=== PATIENT | female | born 2000 | race Caucasian/White ===

== ENCOUNTER 2020-04-15 22:04 | Inpatient (IN) | payer BC, OTHER ==
[~2020-04-15] VITALS: Ht 157.5 cm; Wt 95.0 kg
[~2020-04-15 22:04] MED LIST: ACETAMINOPHEN 325 MG TAB As Ordered ONE; ACETAMINOPHEN 325 MG TAB ONE
[2020-04-16] MEDS ORDERED: MAALOX 30 ML SUSP *UDC PO PRN
[2020-04-16] MEDS ORDERED: MOM 30ML SUSPENSION UDC PO PRN
[2020-04-16] MEDS ORDERED: ACETAMINOPHEN TAB 650MG DOSE (2X325MG) PO PRN
[2020-04-16 00:18] VITALS: BP 120/80
[2020-04-16] MEDS: traZODone 50 MG TAB PO PRN ×2 (00:42→21:47)
[2020-04-16] MEDS: OLANZapine ORAL DISINTEGRATING TAB 5MG PO PRN (00:42)
[2020-04-16 06:09] VITALS: BP 127/71
[2020-04-16] MEDS ORDERED: ESCI10TA2 PO (09:23)
[2020-04-16] MEDS: hydrOXYzine 50 MG TAB PO PRN (12:21)
[2020-04-16 16:44] VITALS: BP 116/71
--- NOTE | 2020-04-16 19:29 | HPEPDOC ---
[facility] Medical History & Physical Date of Admission Apr 16, 2020 Date of Service: Apr 16, 2020 Attending Physician: KERI CLEMENS DO History and Physical CHIEF COMPLAINT: Anxiety and depression HISTORY OF PRESENT ILLNESS: 19 yo F, recently relocated from [place], with a hx of anxiety and depression, admitted for major depressive episode with suicidal ideation. PAST MEDICAL HISTORY: 1. Anxiety and depression 2. Intrauterine demis PAST SURGICAL HISTORY: 1. Dilation and Curettage (03/2019) SOCIAL HISTORY: Marital status: Resides in: [place], [place] Children: 1 Employment: Tobacco use: smoker 2 pack year hx ETOH: rare Illicit drug use: denies IV drug use: denies FAMILY HISTORY: HTN, DM2 ALLERGIES: latex. REVIEW OF SYSTEMS: CONSTITUTIONAL: feels well physically HEENT: none. CARDIOVASCULAR: none. RESPIRATORY: none. GASTROINTESTINAL: none. GENITOURINARY: none. SKIN: none. MUSCULOSKELETAL: none. NEUROLOGICAL: none. PSYCHIATRIC: low mood, SI. ENDOCRINE: none. HEMATOLOGIC/LYMPHATIC: none. HOME MEDICATIONS: Please see below. PHYSICAL EXAMINATION: VITAL SIGNS: stable GENERAL APPEARANCE: NAD, comfortable. HEENT: PERRLA. CARDIOVASCULAR: RRR, normal S1, S2. LUNGS: lungs CTAB. ABDOMEN: soft, non tender. MUSCULOSKELETAL: normal ROM, no joint deformity. EXTREMITIES: wnl. NEUROLOGICAL: no focal neuro deficits. PSYCHIATRIC: anxiety, low mood with SI. LABORATORY DATA: See below. ASSESSMENT: 19 yo F with a hx of IUFD (S/p D&C), anxiety and depression, admitted to [facility] inpatient unit for major depressive episode with suicidal ideation. Hospitalist service consulted for medical assessment. . PLAN: 1. Anxiety and depression: patient states presently on lexapro since 1 week. Prior zoloft. Psychiatry to manage. 2. Obesity: BMI 38.3. Dietican eval No other acute medical issues identified. Please call should need arise. Vital Signs Vital Signs Date Time Temp Pulse Resp B/P (MAP) Pulse Ox O2 Delivery O2 Flow Rate FiO2 04/16/20 16:44 98.0 69 16 116/71 (86) 04/16/20 14:41 Room Air Home Medications Scheduled Escitalopram Oxalate (Escitalopram Oxalate) 10 Mg Tablet, 10 MG PO DAILY for . Allergies Coded Allergies: latex (Verified Allergy, Intermediate, BLISTER, 8/18/20) A-FIB/CHADSVASC A-FIB History Current/History of A-Fib/PAF?: No Current PO Anticoag Therapy: No REHANA VARNER MD Apr 16, 2020 19:29
[2020-04-16] MEDS: NICOTINE 21MG/24HR 1 EA TRANSDERMAL TD PRN (20:46)
[2020-04-16] MEDS ORDERED: SERTRALINE HCL 25 MG TABLET PO SCH (21:00)
[2020-04-17 06:51] VITALS: BP 115/63
[2020-04-17] MEDS: hydrOXYzine 50 MG TAB PO PRN ×3 (07:54→22:14)
[2020-04-17] MEDS: NICOTINE 21MG/24HR 1 EA TRANSDERMAL TD PRN (09:24)
--- NOTE | 2020-04-17 13:13 | MHIPNPDOC ---
[facility] Progress Note Progress Note DATE OF SERVICE: 04/17/20 HISTORY: Patient is a 19 year old White Female who presented to [facility] with [facility] with depression and Suicidal ideation to overdose on "anything". VITAL SIGNS: See below. NEW TEST RESULTS: CURRENT MEDICATIONS: See below. MENTAL STATUS EXAMINATION: Patient is a [19]-year old female, who is reporting continued depression and fleeting suicidal ideation. Speech: Is soft, low with hesitancy. Language skills are . Thought processes including: reality based, linear and goal oriented. Thought content: Negative for carole, psychosis, delusions, auditory and visual hallucinations. Abstract reasoning, and computation: fair . Description of associations: Negative. Description of abnormal or psychotic thoughts: Negative Judgment: fair. Insight: fair. Orientation: alert and oriented to person place and time. Recent and remote memory: intact. Attention span and concentration: good. Language: Fund of knowledge: congruent with her education. Mood: depressed. Affect: flat DIAGNOSES: 1. Major Depressive Disorder, Recurrent, Moderate Post exacerbation 2. Anxiety Disorder 3. ASSESSMENT: Patient is not stable for discharge, she continues to report fle eting suicidal ideation, no planning or intent MANAGEMENT PLAN: Increase Zoloft 50 mg. Patient to start Buspar 10 mg twice casey ly TIME SPENT: 20 minutes. Vital Signs Vital Signs Date Time Temp Pulse Resp B/P (MAP) Pulse Ox O2 Delivery O2 Flow Rate FiO2 04/17/20 09:00 Room Air 04/17/20 06:51 97.3 70 16 115/63 (80) Current Medications Current Medications Medications (Trade) Dose Ordered Sig/Brandon Route PRN Reason Start Time Stop Time Status Last Admin Dose Admin Acetaminophen (Tylenol Tab) 650 mg Q6HP PRN PO HEADACHE or DISCOMFORT 04/16/20 00:00 Al Hydrox/Mg Hydrox/Simethicone (Mylanta) 30 ml Q4HP PRN PO HEARTBURN/INDIGESTION 04/16/20 00:00 Buspirone HCl (Buspar) 5 mg BID PO 04/17/20 09:00 Home Med (Med Rec Complete!) ASDIRECTED XX 04/16/20 09:30 04/16/20 09:27 DC Hydroxyzine HCl (Atarax) 50 mg Q6HP PRN PO ANXIETY 04/16/20 12:00 04/17/20 07:54 Magnesium Hydroxide (Milk Of Magnesia) 30 ml DAILYPRN PRN PO CONSTIPATION 04/16/20 00:00 Nicotine (Nicoderm Cq 21mg) 1 patch DAILY PRN TD Nicotine withdrawal 04/16/20 00:00 04/17/20 09:24 Olanzapine (ZyPREXA ZYDIS) 5 mg Q6HP PRN PO ANXIETY/AGITATION 04/16/20 00:00 04/16/20 00:42 Sertraline HCl (Zoloft) 25 mg QHS PO 04/16/20 21:00 04/17/20 12:53 DC 04/16/20 20:46 Sertraline HCl (Zoloft) 50 mg QHS PO 04/17/20 21:00 Trazodone HCl (Desyrel) 50 mg QHSP PRN PO INSOMNIA 04/16/20 00:00 04/16/20 21:47 Allergies Coded Allergies: latex (Verified Allergy, Intermediate, BLISTER, 04/15/20) ANYA TOM NP Apr 17, 2020 13:12
[2020-04-17] MEDS: busPIRone 5 MG TAB PO SCH ×2 (14:50→20:56)
[2020-04-17 18:00] VITALS: BP 128/82
[2020-04-17] MEDS: traZODone 50 MG TAB PO PRN (20:56)
[2020-04-17] MEDS ORDERED: SERTRALINE HCL 50 MG TAB PO SCH (21:00)
[2020-04-18 06:45] VITALS: BP 124/70
[2020-04-18] MEDS: NICOTINE 21MG/24HR 1 EA TRANSDERMAL TD PRN (08:24)
[2020-04-18] MEDS: hydrOXYzine 50 MG TAB PO PRN (08:24)
[2020-04-18] MEDS: busPIRone 5 MG TAB PO SCH (08:24)
[2020-04-18] MEDS ORDERED: BUSP5TA PO (09:47)
[2020-04-18] MEDS ORDERED: HYDR50TA70 PO (09:47)
[2020-04-18] MEDS ORDERED: NICO21PAT TD (09:47)
[2020-04-18] MEDS ORDERED: SERT50TA29 PO (09:47)
--- NOTE | 2020-04-18 10:07 | MHDSPDOC ---
[facility] Discharge Summary Discharge Summary DATE OF ADMISSION: Apr 15, 2020 at 22:04 DATE OF DISCHARGE: April 18, 2020 1329 DISCHARGE DIAGNOSES: 1. Major Depressive Disorder, Recurrent, Moderate. This depression was exacerbated by post 2. Anxiety Disorder REASON FOR ADMISSION: Patient represented to [facility] with Sander Quiros with reports of increased depression and anxiety with suicidal thoughts to overdose. CONSULTANTS INVOLVED: See Hospitalist H & P report on 04/16/20 TREATMENT AND PROGRESS ON THE UNIT : 1) Patient was afforded Individual and Group Psychotherapy. 2) Psychopharmacologic Management 3) Family was contacted for purposes of information dispersement which was conducted by the neighborhood planner for purpose of education and discharge planning HOSPITAL COURSE: Patient was admitted on a 9.39 legal status to Inpatient Mental Health and she stated that she had been trialed on Lexapro 10 mg but was having varying moods that were upswing and lows. This was discontinued. She was started on Zoloft 25 mg with no reports of side effects and this has been increased to 50 mg at bedtime. She stated that she continued to have anxiety through most of the day and given Buspar 5 mg twice daily. She has not been able to determine its efficacy but reported both yesterday and today that she was improving. Reports improved sleep. Improved mood and affect. Reports that group therapy helped her to process how to communicate with her spouse. States that she often does not communicate her feelings and this has been one of her stressors. She is future oriented and stated that she feels ready and stable for discharge. She is planning to take her children to the park and states that first thing she wants to see is their smiles. DISCHARGE ASSESSMENT: Patient is psychiatrically stable MENTAL STATUS EXAMINATION ON DISCHARGE: Patient is a 19-year old female, who is reporting a decrease in depressive symptoms and anxiety. Speech is fluid, normal rate tone and volume. This was an improvement as she often was very hesitant in her responses Language skills are Good. Thought processes including: Reality Base, Goal-Oriented Congruent and Linaar. Thought content: She is not observed with negative thought content of carole, psychosis, delusions, paranoia or auditory or visual hallucinations Abstract reasoning, and computation: Good. Description of associations: Negative. Description of abnormal or psychotic thoughts: Negative. Judgment: Good Insight: Good Orientation to Alert and oriented Recent and remote memory: Good Attention span and concentration: Good Language: Good Fund of knowledge: Is congruent with her education Mood: Euthymic Affect: Euthymic MEDICATIONS ON DISCHARGE: Zoloft 50 mg at bedtime Buspar 5 mg twice daily Hydroxyzine 50 mg twice daily PRN for anxiety Nicotine Patch 21 mg. One transdermal patch daily. PLAN/FOLLOWUP ARRANGEMENTS: Patient has an appointment with [facility] The amount of time spent in the coordination of care for this patient was approximately 30 minutes. Vital Signs/I&Os Vital Signs Date Time Temp Pulse Resp B/P (MAP) Pulse Ox O2 Delivery O2 Flow Rate FiO2 04/18/20 06:45 98.0 88 16 124/70 (88) 98 Room Air Medications Scheduled Buspirone HCl (Buspirone HCl) 5 Mg Tablet, 5 MG PO BID for Anxiety, #14 Sertraline HCl (Sertraline HCl) 50 Mg Tablet, 50 MG PO QHS for depression, #7 Scheduled PRN Hydroxyzine HCl (Hydroxyzine HCl) 50 Mg Tablet, 50 MG PO Twice Daily PRN for ANXIETY, #14 Nicotine (Nicotine Patch) 21 Mg Patch.td24, 1 PATCH TD DAILY PRN for Nicotine withdrawal, #7 Allergies Coded Allergies: latex (Verified Allergy, Intermediate, BLISTER, 04/15/20) ANYA TOM NP Apr 18, 2020 10:07
[2020-04-18] MEDS: OLANZapine ORAL DISINTEGRATING TAB 5MG PO PRN (11:25)
[2020-04-19 20:04] LABS: ACETAMINOPHEN LEVEL < 2.0 UG/ML (10.0-30.0); ALBUMIN 4.3 GM/DL (3.2-5.2); ALT/SGPT 53 U/L (12-78); AMPHETAMINES LEVEL URINE NEGATIVE (NEGATIVE); BARBITURATES URINE NEGATIVE (NEGATIVE); BENZODIAZEPINES URINE NEGATIVE (NEGATIVE); BILIRUBIN,DIRECT 0.1 MG/DL (0.0-0.2); BILIRUBIN,TOTAL 0.3 MG/DL (0.2-1.0); BLOOD UREA NITROGEN 10 MG/DL (7-18); CALCIUM LEVEL 9.3 MG/DL (8.5-10.1); CANNABINOIDS URINE NEGATIVE (NEGATIVE); CARBON DIOXIDE LEVEL 25 MEQ/L (21-32); CHLORIDE LEVEL 109 MEQ/L (98-107); COCAINE METABOLITE URINE NEGATIVE (NEGATIVE); CREATININE FOR GFR 0.66 MG/DL (0.55-1.30); ETHYL ALCOHOL (ETHANOL) < 0.003 % (0.000-0.010); GLUCOSE, FASTING 104 MG/DL (70-100); METHADONE URINE NEGATIVE (NEGATIVE); OPIATES URINE NEGATIVE (NEGATIVE); PHENCYCLIDINE URINE NEGATIVE (NEGATIVE); POTASSIUM SERUM 4.1 MEQ/L (3.5-5.1); SALICYLATE LEVEL < 1.7 MG/DL (5.0-30.0); SODIUM LEVEL 140 MEQ/L (136-145); TOTAL PROTEIN 7.8 GM/DL (6.4-8.2)
[2020-04-19 20:19] LABS: HCG, SERUM QUALITATIVE NEGATIVE (NEGATIVE)
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
[2020-05-26 08:24] LABS: HEMATOCRIT 42.9 % (36.0-47.0); HEMOGLOBIN 14.1 g/dl (12.0-15.5); MEAN CORPUSCULAR HGB CONC 32.9 g/dl (32.0-36.5); MEAN CORPUSCULAR VOLUME 88.1 fl (80.0-96.0); PLATELET COUNT, AUTOMATED 296 10^3/uL (150-450); RED BLOOD COUNT 4.87 10^6/uL (4.00-5.40); WHITE BLOOD COUNT 8.5 10^3/uL (4.0-10.0)
== END 2020-04-18 12:39 | disposition home or self-care (01) | DRG 885 ==
LOC: M PSY 22:04
PROVIDERS: ADMIT Psychiatry & Neurology Psychiatry; ATTEND Psychiatry & Neurology Psychiatry
DX: F33.2 Major depressive disorder, recurrent severe without psychotic features (principal); F41.9 Anxiety disorder, unspecified; F17.200 Nicotine dependence, unspecified, uncomplicated; E66.9 Obesity, unspecified; Z68.38 Body mass index [BMI] 38.0-38.9, adult

== ENCOUNTER 2020-05-30 12:25 | Inpatient (IN) | payer BC, OTHER ==
[~2020-05-30] VITALS: Ht 157.5 cm; Wt 97.3 kg
[~2020-05-30 12:25] MED LIST changes: -ACETAMINOPHEN 325 MG TAB As Ordered ONE; -ACETAMINOPHEN 325 MG TAB ONE; +BUSP5TA PO; +ESCI10TA2 PO; +HYDR50TA70 PO; +NICO21PAT TD; +SERT50TA29 PO
[2020-05-30 13:04] LABS: HEMATOCRIT 38.4 % (36.0-47.0); HEMOGLOBIN 12.5 g/dl (12.0-15.5); MEAN CORPUSCULAR HEMOGLOBIN 29.5 pg (27.0-33.0); MEAN CORPUSCULAR HGB CONC 32.6 g/dl (32.0-36.5); MEAN CORPUSCULAR VOLUME 90.6 fl (80.0-96.0); PLATELET COUNT, AUTOMATED 243 10^3/uL (150-450); RED BLOOD COUNT 4.24 10^6/uL (4.00-5.40); WHITE BLOOD COUNT 12.2 10^3/uL (4.0-10.0)
[2020-05-30] MEDS ORDERED: D 50CAP2 PO (13:15)
[2020-05-30 13:19] LABS: AMPHETAMINES LEVEL URINE NEGATIVE (NEGATIVE); BARBITURATES URINE NEGATIVE (NEGATIVE); BENZODIAZEPINES URINE NEGATIVE (NEGATIVE); CANNABINOIDS URINE NEGATIVE (NEGATIVE); COCAINE METABOLITE URINE NEGATIVE (NEGATIVE); METHADONE URINE NEGATIVE (NEGATIVE); OPIATES URINE NEGATIVE (NEGATIVE); PHENCYCLIDINE URINE NEGATIVE (NEGATIVE)
[2020-05-30] MEDS ORDERED: NICOTINE 21MG/24HR 1 EA TRANSDERMAL TD ONE (13:30)
[2020-05-30 13:33] LABS: HCG, SERUM QUALITATIVE NEGATIVE (NEGATIVE)
[2020-05-30 14:01] LABS: ACETAMINOPHEN LEVEL < 2.0 UG/ML (10.0-30.0); ALBUMIN 3.7 GM/DL (3.2-5.2); ALT/SGPT 30 U/L (12-78); BILIRUBIN,DIRECT < 0.1 MG/DL (0.0-0.2); BILIRUBIN,TOTAL 0.2 MG/DL (0.2-1.0); BLOOD UREA NITROGEN 13 MG/DL (7-18); CALCIUM LEVEL 8.9 MG/DL (8.5-10.1); CARBON DIOXIDE LEVEL 27 MEQ/L (21-32); CHLORIDE LEVEL 110 MEQ/L (98-107); CREATININE FOR GFR 0.56 MG/DL (0.55-1.30); ETHYL ALCOHOL (ETHANOL) < 0.003 % (0.000-0.010); GLUCOSE, FASTING 82 MG/DL (70-100); POTASSIUM SERUM 4.3 MEQ/L (3.5-5.1); SALICYLATE LEVEL 3.3 MG/DL (5.0-30.0); SODIUM LEVEL 142 MEQ/L (136-145); TOTAL PROTEIN 6.6 GM/DL (6.4-8.2)
[2020-05-30] MEDS ORDERED: RISP0.5T3 PO (14:51)
[2020-05-30] MEDS ORDERED: SERT50TA29 PO (15:22)
[2020-05-30] MEDS ORDERED: HYDR50TA70 PO (15:23)
[2020-05-30] MEDS ORDERED: MAALOX 30 ML SUSP *UDC PO PRN (16:15)
[2020-05-30] MEDS ORDERED: MOM 30ML SUSPENSION UDC PO PRN (16:15)
[2020-05-30] MEDS ORDERED: ACETAMINOPHEN TAB 650MG DOSE (2X325MG) PO PRN (16:15)
[2020-05-30] MEDS: hydrOXYzine 50 MG TAB PO PRN (20:14)
[2020-05-30] MEDS: SERTRALINE 100 MG TAB PO SCH (20:14)
[2020-05-30] MEDS: risperiDONE 0.5 MG TAB PO SCH (20:14)
[2020-05-30] MEDS: traZODone 50 MG TAB PO PRN (20:53)
[2020-05-30] MEDS ORDERED: OLANZapine ORAL DISINTEGRATING TAB 5MG PO ONE (21:15)
[2020-05-31 06:16] VITALS: BP 118/56
[2020-05-31] MEDS ORDERED: INFLUENZA QUADRIVALENT PF VACCINE 0.5ML SYRINGE IM ONE (09:00)
[2020-05-31] MEDS: hydrOXYzine 50 MG TAB PO PRN ×2 (13:58→20:29)
[2020-05-31] MEDS ORDERED: MIRALAX *UNIT DOSE* 17GM PACKET PO PRN (16:00)
[2020-05-31 16:14] VITALS: BP 118/70
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
[2020-05-31] MEDS: LIDOCAINE 5% (LIDODERM) PATCH TD SCH (16:28)
[2020-05-31] MEDS: DOCUSATE SODIUM 100 MG CAP PO SCH (16:28)
[2020-05-31] MEDS: NICOTINE 21MG/24HR 1 EA TRANSDERMAL TD SCH (16:28)
[2020-05-31] MEDS: **NOTE PATIENT COMMENT** MISC XX SCH (20:28)
[2020-05-31] MEDS: SERTRALINE 100 MG TAB PO SCH (20:29)
[2020-05-31] MEDS: risperiDONE 0.5 MG TAB PO SCH (20:30)
[2020-05-31] MEDS: traZODone 50 MG TAB PO PRN (21:49)
[2020-06-01 06:25] VITALS: BP 126/59
[2020-06-01] MEDS: DOCUSATE SODIUM 100 MG CAP PO SCH (08:48)
[2020-06-01] MEDS: NICOTINE 21MG/24HR 1 EA TRANSDERMAL TD SCH (08:48)
[2020-06-01] MEDS: LIDOCAINE 5% (LIDODERM) PATCH TD SCH (08:49)
--- NOTE | 2020-06-01 10:26 | MHHPEPDOC ---
[facility] History & Physical History and Physical Admit time:May 30, 2020 at 16:13 Subjective HPI: Turner presents today for concerns regarding her PTSD episodes. Her period and 1-year anniversary is bringing back memories and emotions. She does not want to kill herself. She wants to get better, so she can go back to her kids. She hears mostly female voices 24/7. She sees a plain black 3D male figure a lot. She has no history of staying up all night for weeks at a time. MEDICATIONS: She is currently taking Risperidone and Zoloft. MEDICAL HISTORY: She had a miscarriage and almost . FAMILY HISTORY: Her uncle has schizophrenia. SOCIAL HISTORY - LIVING SITUATION: Her living situation is stressful. She lives with her and her two kids. She is having financial issues. SOCIAL HISTORY - SMOKING: She smokes a pack of cigarettes a day. She wants to get a medical marijuana card, as it helped with her anxiety in the past. Objective Appearance: Fair Hygiene. Behavior: Poor eye contact. Affect: Constricted. Dystemic. Speech: Normal volume. Normal rate. Spontaneous and Fluid. Cognition: Associations are intact. Thought Content: Reports no suicidal thoughts at this time. Denies any auditory, visual hallucinations. Does not appear to be responding to internal stimuli. Judgement: Poor. Insight: Poor. 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 She appears to have transient stress induced psychosis and paranoia. However, it's quite unclear if this ultimately is related to the patient's presenting problem. She's not describing any direct stressors or other issues that had brought her in. Her suicidal ideations are vague at this time and could be the result of very poor coping skills. Length of stay is one two three days, will continue on involuntary with extension tomorrow or conversion to voluntary depending on how she does. Continue Risperidone and Zoloft at current dose. Vital Signs Vital Signs Date Time Temp Pulse Resp B/P (MAP) Pulse Ox O2 Delivery O2 Flow Rate FiO2 06/01/20 06:25 97.3 102 12 126/59 (81) Room Air 05/30/20 16:52 99 Medications Scheduled Cholecalciferol (Vitamin D3) (Vitamin D3) 125 Mcg Capsule, 125 MCG PO QHS, (Reported) Risperidone (Risperidone) 0.5 Mg Tablet, 1.5 MG PO QHS, (Reported) Sertraline HCl (Sertraline HCl) 50 Mg Tablet, 100 MG PO QHS, (Reported) Scheduled PRN Hydroxyzine HCl (Hydroxyzine HCl) 50 Mg Tablet, 50 MG PO BID PRN for ANXIETY, (Reported) Allergies Coded Allergies: latex (Verified Allergy, Intermediate, BLISTER, 04/15/20) escitalopram (Verified Adverse Reaction, Severe, SIs, 05/30/20) KERI CLEMENS DO Jun 01, 2020 10:26
[2020-06-01 16:15] VITALS: BP 140/89
[2020-06-01] MEDS: **NOTE PATIENT COMMENT** MISC XX SCH (20:44)
[2020-06-01] MEDS: SERTRALINE HCL 50 MG TAB PO SCH (20:45)
[2020-06-01] MEDS: traZODone 50 MG TAB PO PRN (20:46)
[2020-06-01] MEDS: risperiDONE 0.5 MG TAB PO SCH (20:46)
[2020-06-01 22:13] LABS: APPEARANCE, URINE CLEAR (CLEAR); BACTERIA, URINE AUTO NEGATIVE (NEGATIVE); BILIRUBIN, URINE AUTO NEGATIVE (NEGATIVE); BLOOD, URINE BLOOD 3+ (NEGATIVE); COLOR, URINE YELLOW (YELLOW); GLUCOSE, URINE (UA) AUTO NEGATIVE (NEGATIVE); KETONE, URINE AUTO NEGATIVE (NEGATIVE); LEUKOCYTE ESTERASE, URINE AUTO NEGATIVE (NEGATIVE); MUCUS, URINE SMALL (NEGATIVE); NITRITE, URINE AUTO NEGATIVE (NEGATIVE); PROTEIN, URINE AUTO NEGATIVE (NEGATIVE); RBC, URINE AUTO 2 /HPF (0-3); SPECIFIC GRAVITY URINE AUTO 1.013 (1.002-1.035); SQUAMOUS EPITHELIAL CELL UR AU 0 /HPF (0-6); UROBILINOGEN, URINE AUTO 0.2 mg/dL (0.0-2.0); WBC, URINE AUTO 1 /HPF (0-3)
[2020-06-02 06:32] VITALS: BP 120/59
[2020-06-02] MEDS: LIDOCAINE 5% (LIDODERM) PATCH TD SCH (09:26)
[2020-06-02] MEDS: DOCUSATE SODIUM 100 MG CAP PO SCH (09:26)
[2020-06-02] MEDS: NICOTINE 21MG/24HR 1 EA TRANSDERMAL TD SCH (09:26)
--- NOTE | 2020-06-02 11:19 | MHIPNPDOC ---
[facility] Progress Note Progress Note DATE OF SERVICE: 06/01/20 Subjective HPI: Turner presents today for a follow up. She reports a recent breakdown because of scary/worried thoughts racing through her mind, such as her cheating on her, her not waking up and her kids crying, or her doesnt want to be with her. Objective Appearance: Poor eye contact. Fair hygiene. Affect: Appropriate to context. Full range. Cognition: Alert, Attentive, and Oriented to person, place, time. Thought Form: Linear and goal directed. Thought Content: No evidence of suicidal ideation. No evidence of aggressive or homicidal ideation. No thoughts of self harm. No evidence of delusions. Judgement: Poor to fair. Intact as evidenced by decision making in the recent past. Insight: Poor to fair. Assessment F33.8 Other recurrent depressive disorders Plan Continue taking 150 mg Zoloft daily. Resume Risperidone as prescribed. Even though suicidal ideation is gone, still observe/examine her thoughts, which are quite concerning. Vital Signs Vital Signs Date Time Temp Pulse Resp B/P (MAP) Pulse Ox O2 Delivery O2 Flow Rate FiO2 06/02/20 06:32 96.8 77 16 120/59 (79) 100 Room Air Laboratory Data 24H Labs Laboratory Tests 2 06/01/20 22:00: Urine Color YELLOW, Urine Appearance CLEAR, Urine pH 5.0, Urine Specific [place] 1.013, Urine Protein NEGATIVE, Urine Glucose (Auto)(UA) NEGATIVE, Urine Ketones (Auto) NEGATIVE, Urine Blood 3+H, Urine Nitrite NEGATIVE, Urine Bilirubin NEGATIVE, Urine Urobilinogen 0.2, Urine Leukocyte Esterase (Auto) NEGATIVE, Urine WBC (Auto) 1, Urine RBC (Auto) 2, Urine Hyaline Casts (Auto) 0, Urine Bacteria (Auto) NEGATIVE, Urine Squamous Epithelial Cells 0, Urine Mucus (Auto) SMALL, Urine Sperm (Auto) Current Medications Current Medications Medications (Trade) Dose Ordered Sig/Brandon Route PRN Reason Start Time Stop Time Status Last Admin Dose Admin Acetaminophen (Tylenol Tab) 650 mg Q6HP PRN PO HEADACHE or DISCOMFORT 05/30/20 16:15 Al Hydrox/Mg Hydrox/Simethicone (Mylanta) 30 ml Q4HP PRN PO HEARTBURN/INDIGESTION 05/30/20 16:15 Docusate Sodium (Colace) 100 mg DAILY PO 05/31/20 09:00 06/02/20 09:26 Home Med (Med Rec Complete!) ASDIRECTED XX 05/30/20 15:30 05/30/20 15:26 DC Hydroxyzine HCl (Atarax) 50 mg BID PRN PO ANXIETY 05/30/20 16:30 05/31/20 20:29 Lidocaine (Lidoderm Patch) 1 patch DAILY TD 05/31/20 09:00 06/02/20 09:26 Magnesium Hydroxide (Milk Of Magnesia) 30 ml DAILYPRN PRN PO CONSTIPATION 05/30/20 16:15 Nicotine (Nicoderm Cq 21mg) 1 patch DAILY TD 05/31/20 09:00 06/02/20 09:26 Non-Formulary Medication ( See Comment Field Below ) REMOVE LIDODERM PATCH DAILY@21 XX 05/31/20 21:00 06/01/20 20:44 Polyethylene Glycol (Miralax) 1 pkt DAILYPRN PRN PO CONSTIPATION 05/31/20 16:00 Risperidone (RisperDAL) 1.5 mg QHS PO 05/30/20 21:00 06/01/20 20:46 Sertraline HCl (Zoloft) 100 mg QHS PO 05/30/20 21:00 06/01/20 16:13 DC 05/31/20 20:29 Sertraline HCl (Zoloft) 150 mg QHS PO 06/01/20 21:00 06/01/20 20:45 Trazodone HCl (Desyrel) 50 mg QHSP PRN PO INSOMNIA 05/30/20 16:15 06/01/20 20:46 Allergies Coded Allergies: latex (Verified Allergy, Intermediate, BLISTER, 04/15/20) escitalopram (Verified Adverse Reaction, Severe, SIs, 05/30/20) KERI CLEMENS DO Jun 02, 2020 11:19
[2020-06-02] MEDS: hydrOXYzine 50 MG TAB PO PRN (15:44)
[2020-06-02 17:46] VITALS: BP 128/88
[2020-06-02] MEDS: traZODone 50 MG TAB PO PRN (20:38)
[2020-06-02] MEDS: SERTRALINE HCL 50 MG TAB PO SCH (20:39)
[2020-06-02] MEDS: risperiDONE 0.5 MG TAB PO SCH (20:39)
[2020-06-02] MEDS: **NOTE PATIENT COMMENT** MISC XX SCH (21:00)
[2020-06-03 06:13] VITALS: BP 92/51
[2020-06-03] MEDS: hydrOXYzine 50 MG TAB PO PRN ×2 (08:44→20:38)
[2020-06-03] MEDS: LIDOCAINE 5% (LIDODERM) PATCH TD SCH (08:44)
[2020-06-03] MEDS: DOCUSATE SODIUM 100 MG CAP PO SCH (08:44)
[2020-06-03] MEDS: NICOTINE 21MG/24HR 1 EA TRANSDERMAL TD SCH (08:44)
--- NOTE | 2020-06-03 10:44 | MHIPNPDOC ---
[facility] Progress Note Progress Note DATE OF SERVICE: 06/03/20 Subjective HPI: Turner presents today for concerns regarding her depression. Patient is doing better with her depression and thoughts of suicide. She had symptoms of anxiety yesterday. Patient has a weekly appointment set up with her therapist. MEDICATIONS: Patient would like a different medication for her depression as it gets worse at night. Talk to primary care or CLINICAL PROGRAM COORDINATOR about Nexplanon. MEDICAL HISTORY: Patient has had a miscarriage and is suffering from flashbacks to that time. SOCIAL HISTORY - LIVING SITUATION: Patients birthday is on Tuesday and wants to spend it with her children. Objective Appearance: Well nourished. Appears to be stated age. Well groomed. Behavior: Engaged. Cooperative with good eye contact. Pleasant. Affect: Appropriate to context. Full range. Mood: Euthymic. Appropriately reactive. Generally good. Speech: Normal volume. Normal rate. Spontaneous and Fluid. Motor: No gross motor abnormalities. Cognition: Alert, Attentive, and Oriented to person, place, time. Memory: No gross abnormalities of short or senior living memory noted during interview. No formal testing. Thought Form: Linear and goal directed. Thought Content: No evidence of aggressive or homicidal ideation. No evidence of delusions. No thoughts of self harm. No evidence of suicidal ideation. Perception: No perceptual abnormalities noted. Judgement: Intact as evidenced by decision making in the recent past. Insight: Good insight into symptoms and treatment options. 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 Continue Zoloft 150 mg daily. Discharged tomorrow. The risks, benefits as well as common side effects as well as alternative treatments (including non-treatment) were discussed with the patient both in general and for their particular case. The patient selected this option out of a range. Vital Signs Vital Signs Date Time Temp Pulse Resp B/P (MAP) Pulse Ox O2 Delivery O2 Flow Rate FiO2 06/03/20 06:13 97.9 69 14 92/51 (65) 98 Room Air Current Medications Current Medications Medications (Trade) Dose Ordered Sig/Brandon Route PRN Reason Start Time Stop Time Status Last Admin Dose Admin Acetaminophen (Tylenol Tab) 650 mg Q6HP PRN PO HEADACHE or DISCOMFORT 05/30/20 16:15 06/02/20 20:38 Al Hydrox/Mg Hydrox/Simethicone (Mylanta) 30 ml Q4HP PRN PO HEARTBURN/INDIGESTION 05/30/20 16:15 Docusate Sodium (Colace) 100 mg DAILY PO 05/31/20 09:00 06/03/20 08:44 Home Med (Med Rec Complete!) ASDIRECTED XX 05/30/20 15:30 05/30/20 15:26 DC Hydroxyzine HCl (Atarax) 50 mg BID PRN PO ANXIETY 05/30/20 16:30 06/03/20 08:44 Lidocaine (Lidoderm Patch) 1 patch DAILY TD 05/31/20 09:00 06/03/20 08:44 Magnesium Hydroxide (Milk Of Magnesia) 30 ml DAILYPRN PRN PO CONSTIPATION 05/30/20 16:15 Nicotine (Nicoderm Cq 21mg) 1 patch DAILY TD 05/31/20 09:00 06/03/20 08:44 Non-Formulary Medication ( See Comment Field Below ) REMOVE LIDODERM PATCH DAILY@21 XX 05/31/20 21:00 06/02/20 21:00 Polyethylene Glycol (Miralax) 1 pkt DAILYPRN PRN PO CONSTIPATION 05/31/20 16:00 Risperidone (RisperDAL) 1.5 mg QHS PO 05/30/20 21:00 06/02/20 20:39 Sertraline HCl (Zoloft) 100 mg QHS PO 05/30/20 21:00 06/01/20 16:13 DC 05/31/20 20:29 Sertraline HCl (Zoloft) 150 mg QHS PO 06/01/20 21:00 06/02/20 20:39 Trazodone HCl (Desyrel) 50 mg QHSP PRN PO INSOMNIA 05/30/20 16:15 06/02/20 20:38 Allergies Coded Allergies: latex (Verified Allergy, Intermediate, BLISTER, 04/15/20) escitalopram (Verified Adverse Reaction, Severe, SIs, 05/30/20) KERI CLEMENS DO Jun 03, 2020 10:43
[2020-06-03 18:06] VITALS: BP 142/77
[2020-06-03] MEDS: SERTRALINE HCL 50 MG TAB PO SCH (20:39)
[2020-06-03] MEDS ORDERED: ARIPiprazole 2 MG TAB PO SCH (21:00)
[2020-06-03] MEDS: **NOTE PATIENT COMMENT** MISC XX SCH (21:30)
[2020-06-04 06:59] VITALS: BP 122/68
[2020-06-04] MEDS: NICOTINE 21MG/24HR 1 EA TRANSDERMAL TD SCH (08:38)
[2020-06-04] MEDS: DOCUSATE SODIUM 100 MG CAP PO SCH (08:38)
[2020-06-04] MEDS: LIDOCAINE 5% (LIDODERM) PATCH TD SCH (08:38)
[2020-06-04] MEDS ORDERED: SERT50TA29 PO (08:59)
[2020-06-04] MEDS ORDERED: LIDO5TD TD (08:59)
[2020-06-04] MEDS ORDERED: NICO21PAT TD (08:59)
[2020-06-04] MEDS ORDERED: ABIL1TAB13 PO (08:59)
--- NOTE | 2020-06-04 09:08 | MHDSPDOC ---
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 Patient reported multiple stressors from difficulties in her relationship. She has intermittent SI at first which was shortly resolved after the medication adjustments. Patient was denying suicidal ideation for several days before her discharge. Affect was notably improved and euthymic on discharge. MEDICATIONS: She was resumed on 1.5 mg Zoloft and 100 mg Risperidone upon initial admission. She did generally well. However, the depression didnt lift easily so Zoloft was increased to 100 mg, which showed positive results. Risperidone caused , which was discontinued. Patient tried on 2 mg Abilify which showed positive results of her depression lifting and improving. Patient reported she liked the Abilify and wanted to increase it to twice a day. This was discussed with the patient before discharge that she would have to talk to her outpatient provider. SOCIAL HISTORY - LIVING SITUATION: She became more social in the unit and found a group of peers and began to explore her emotions. She had become notably more engaging and had no behavioral problems on the unit. DISCHARGE ASSESSMENT[improved] Legal status considerations: The patient at the time of discharge did not meet criteria for involuntary admission/extension due to having a [normal] mental status exam, [fair] insight into the situation, They are engaged in the discharge process, as well as being friendly and amenable in behavioral control and havent been engaging in any observed concerning behavior or ideation recently. They decline voluntary extension/admission at this time and must be discharged in good davis, as Im unable to make a case for holding the patient against their will. They may have historical risk factors of admissions and other interactions with psychiatry however, those are not modifiable from a clinical perspective. The patient will need to be discharged in good davis. MENTAL STATUS EXAMINATION ON DISCHARGE: [General: Well dressed with good hygiene Speech: Spontaneous and fluid Thought processes: Linear and logical Thought content: Future orientated Abstract reasoning, and computation: Intact Description of associations: Intact Description of abnormal or psychotic thoughts:Denies any suicidal or homicidal ideation. Denies any auditory or visual hallucinations. Does not appear to be responding to internal stimuli. Does not appear to be endorsing any bizarre or paranoid ideation. Judgment: fair Insight: fair Orientation: Alert and orientated 3 Recent and remote memory: Intact Attention span and concentration: Intact Fund of knowledge: Adequate Mood: "okay" Affect: Euthymic with a full range] PLAN/FOLLOWUP ARRANGEMENTS: Follow up appointments made (PCP and MH in 5 days of D/C date) and safety plan completed. Safety Planning aspects completed prior to discharge [Medication supplies limited to 7 days with 4 refills to prevent accumulation to OD] [Family contact completed, educated on safe practices, instructed on removal and mitigation of dangerous means] [RN reviewed crisis hotline information and other aspects to empower patient to access care in interim before next appointment.] The amount of time spent in the coordination of care for this patient was approximately 30 minutes. Vital Signs/I&Os Vital Signs Date Time Temp Pulse Resp B/P (MAP) Pulse Ox O2 Delivery O2 Flow Rate FiO2 06/04/20 06:59 97.9 66 14 122/68 (86) 98 Room Air Medications Scheduled Aripiprazole (Abilify) 2 Mg Tablet, 2 MG PO QHS for mood for 7 Days, #7 Cholecalciferol (Vitamin D3) (Vitamin D3) 125 Mcg Capsule, 125 MCG PO QHS, (Reported) Lidocaine (Lidocaine) 5% Adh..patch, 1 PATCH TD DAILY for pain for 30 Days, #30 Nicotine (Nicotine Patch) 21 Mg Patch.td24, 1 PATCH TD DAILY for tobacco for 30 Days, #30 Sertraline HCl (Sertraline HCl) 50 Mg Tablet, 150 MG PO QHS for mood for 7 Days, #21 Scheduled PRN Hydroxyzine HCl (Hydroxyzine HCl) 50 Mg Tablet, 50 MG PO BID PRN for ANXIETY, (Reported) Allergies Coded Allergies: latex (Verified Allergy, Intermediate, BLISTER, 04/15/20) escitalopram (Verified Adverse Reaction, Severe, SIs, 05/30/20) KERI CLEMENS DO Jun 04, 2020 09:08
== END 2020-06-04 11:35 | disposition home or self-care (01) | DRG 751 ==
LOC: M ED 12:25 → M ED INP 16:13 → M PSY 17:01
PROVIDERS: ADMIT Psychiatry & Neurology Addiction Medicine; ATTEND Psychiatry & Neurology Addiction Medicine
DX: F33.0 Major depressive disorder, recurrent, mild (principal); F07.89 Other personality and behavioral disorders due to known physiological condition; F17.210 Nicotine dependence, cigarettes, uncomplicated; M54.5 Low back pain; E28.2 Polycystic ovarian syndrome; K58.1 Irritable bowel syndrome with constipation; Z79.899 Other long term (current) drug therapy; Z88.8 Allergy status to other drugs, medicaments and biological substances; Z91.040 Latex allergy status

== ENCOUNTER 2020-06-24 21:54 | Emergency (ER) | payer BC, OTHER ==
[~2020-06-24] VITALS: Ht 157.5 cm; Wt 97.7 kg
[2020-06-24 21:54] VITALS: BP 121/80
[~2020-06-24 21:54] MED LIST changes: +ABIL1TAB13 PO; +D 50CAP2 PO; +LIDO5TD TD; +RISP0.5T3 PO
== END 2020-06-25 01:09 | disposition home or self-care (01) ==
LOC: M ED 21:54
DX: Z20.828 Contact with and (suspected) exposure to other viral communicable diseases (principal); R07.0 Pain in throat; F17.200 Nicotine dependence, unspecified, uncomplicated
CPT/HCPCS: 99282; U0002

== ENCOUNTER → 2020-07-29 | Outpatient (REF) | payer OTHER ==
[~2020-07-29] MED LIST changes: +RISP-7 PO; -RISP0.5T3 PO
== END ==
LOC: M LAB REF 09:43
PROVIDERS: ATTEND Physician Assistant
DX: N94.6 Dysmenorrhea, unspecified (principal)

== ENCOUNTER 2021-03-23 13:46 | Inpatient (IN) | payer BC, OTHER ==
[~2021-03-23] VITALS: Ht 157.5 cm; Wt 99.6 kg
[2021-03-23] MEDS: NICOTINE 21MG/24HR 1 EA TRANSDERMAL TD SCH (09:00)
[~2021-03-23 13:46] MED LIST changes: +ESCI10TA16 PO; -ESCI10TA2 PO
[2021-03-23] MEDS ORDERED: EFFE150C2 (13:54)
[2021-03-23] MEDS ORDERED: TOPI50TA9 PO (13:54)
[2021-03-23] MEDS ORDERED: BUPR15TA PO (13:54)
[2021-03-23] MEDS ORDERED: QUET200T2 PO (13:54)
[2021-03-23] MEDS ORDERED: AMPH1CAP16 PO (13:54)
[2021-03-23 15:14] LABS: HEMOGLOBIN 13.6 g/dl (12.0-15.5); MEAN CORPUSCULAR HGB CONC 33.2 g/dl (32.0-36.5); MEAN CORPUSCULAR VOLUME 93.4 fl (80.0-96.0); PLATELET COUNT, AUTOMATED 276 10^3/uL (150-450); RED BLOOD COUNT 4.39 10^6/uL (4.00-5.40); WHITE BLOOD COUNT 11.7 10^3/uL (4.0-10.0)
[2021-03-23 15:33] LABS: AMPHETAMINES LEVEL URINE POSITIVE (NEGATIVE); BARBITURATES URINE NEGATIVE (NEGATIVE); BENZODIAZEPINES URINE NEGATIVE (NEGATIVE); CANNABINOIDS URINE NEGATIVE (NEGATIVE); COCAINE METABOLITE URINE NEGATIVE (NEGATIVE); HCG, SERUM QUALITATIVE NEGATIVE (NEGATIVE); METHADONE URINE NEGATIVE (NEGATIVE); OPIATES URINE NEGATIVE (NEGATIVE); PHENCYCLIDINE URINE NEGATIVE (NEGATIVE)
[2021-03-23 15:42] LABS: ACETAMINOPHEN LEVEL < 2.0 UG/ML (10.0-30.0); ALBUMIN 3.9 GM/DL (3.2-5.2); ALT/SGPT 27 U/L (12-78); BILIRUBIN,DIRECT < 0.1 MG/DL (0.0-0.2); BILIRUBIN,TOTAL 0.2 MG/DL (0.2-1.0); BLOOD UREA NITROGEN 10 MG/DL (7-18); CALCIUM LEVEL 8.9 MG/DL (8.5-10.1); CARBON DIOXIDE LEVEL 25 MEQ/L (21-32); CHLORIDE LEVEL 112 MEQ/L (98-107); CREATININE FOR GFR 0.72 MG/DL (0.55-1.30); ETHYL ALCOHOL (ETHANOL) < 0.003 % (0.000-0.010); GLOMERULAR FILTRATION RATE > 60.0 (>60); GLUCOSE, FASTING 85 MG/DL (70-100); POTASSIUM SERUM 4.1 MEQ/L (3.5-5.1); SALICYLATE LEVEL < 1.7 MG/DL (5.0-30.0); SODIUM LEVEL 142 MEQ/L (136-145); TOTAL PROTEIN 7.3 GM/DL (6.4-8.2)
[2021-03-23 17:22] LABS: RSV AMPLIFICATION NEGATIVE (NEGATIVE)
[2021-03-23] MEDS ORDERED: traZODone 50 MG TAB PO PRN (17:50)
[2021-03-23] MEDS ORDERED: MOM 30ML SUSPENSION UDC PO PRN (17:50)
[2021-03-23] MEDS ORDERED: MAALOX 30 ML SUSP *UDC PO PRN (17:50)
[2021-03-23] MEDS ORDERED: ACETAMINOPHEN TAB 650MG DOSE (2X325MG) PO PRN (17:50)
[2021-03-23] MEDS ORDERED: hydrOXYzine 50 MG TAB PO PRN (18:05)
[2021-03-23] MEDS ORDERED: VENL-115 PO (18:44)
[2021-03-23] MEDS ORDERED: HYDR50TA70 PO (18:50)
[2021-03-23] MEDS ORDERED: QUEtiapine FUMARATE 200 MG TAB PO SCH (21:00)
[2021-03-23 21:52] VITALS: BP 111/72
[2021-03-24] MEDS: NICOTINE 21MG/24HR 1 EA TRANSDERMAL TD SCH (08:18)
[2021-03-24] MEDS: buPROPion **SR TABLET** (ZYBAN) 150MG PO SCH (08:18)
[2021-03-24] MEDS ORDERED: LIDOCAINE 5% (LIDODERM) PATCH TD ONE (09:00)
--- NOTE | 2021-03-24 10:14 | MHHPEPDOC ---
General Date Of Admission: Mar 23, 2021 Legal Status: 9.39 Chief Complaint " I was feeling so depressed I could not even do my housework. I do not really want to kill myself. History of Present Illness HISTORY OF THE PRESENT ILLNESS: Patient is a 20 -year-old , female, who [has a long history of depression since age of 15 and 2 previous admissions [facility] in 2019. She is currently in active outpatient treatment at mental health unit on and has been complying with her medication. She stated that in the past month she is feeling more depressed anxious with incr easing irritability with the fluctuating sleep and appetite. She also reports that she occasionally hears whispers telling her to jump but stated that she has no intent to kill herself because she has 2 little children to think about. She reports marked the difficulty with the focusing and completing tasks and has no energy and feeling like she cannot complete simple tasks. She has been complying with prescribed medication but reports no benefit and no relief and was asking for possible medication changes but could not get any help because her primary psychiatrist is on leave. She is denying any clear precipitant and denies any new stressors and denies any other psychotic symptoms other than hearing whispers. She has no history of della and has no history of actual suicidal attempt and strongly denies any intent to kill herself but does not feel safe and is asking for help with the possible medication changes.]. Psychiatric Review of Systems Depression (2 or more weeks): depressed mood, insomnia/hypersomnia, decreased energy, difficulty concentrating, appetite changes, suicidal thoughts, other (Increasing irritability) Della (4 or more days of): denies Psychosis: auditory hallucination (Hearing whispers but no conversation and no command) PTSD: denies Anxiety: gen/non-specific anxiety Past Psychiatric History Previous Psychiatric Diagnosis: [Major depression]. Previous Psychiatric Admissions: [2 inpatient admissions in 2019]. Suicide Attempts: [No history of actual suicidal attempt]. Psychiatric Follow-up: [He is attending outpatient clinic]. Psychiatric medications: Currently taking Wellbutrin and Seroquel and Adderall. Past medication history of Zoloft Abilify and Lexapro. Past Medical History Medical Problems Denies any major medical history Head Injury: No Seizures: No Hospitalizations: No Surgeries: No Family Medical/Psychiatric HX Medical Problems Noncontributory Psychiatric Disorders: Yes (Mother and grandmother has a history of depression and an uncle was diagnosed with schizophrenia) Addiction: No Suicide Attemps/Completions: No Addiction History denies Social History Childhood: . Uneventful was born in [place] Abuse/Trauma:. Denies any history of abuse Current Living Situation: Lives with her of 4 years has 2 children ages 3 and 1. Education: . High school Employment: Supported by Social Support: . Family Legal: . Denies any legal history Marital: . for 4 years Mental Status Examination General Appearance: appears stated age Build: average Demeanor: withdrawn, preoccupied Eye Contact: fair Activity: slowed, anxious Behavior: cooperative Speech: clear, slow, low in volume, non-spontaneous Mood: depressed, anxious Mood Reports increasing depression and anxiety with fluctuating sleep and appetite. Also reports poor concentration and poor energy social withdrawal Thought Content (Delusions): none reported, other (Suicidal thoughts but no plan or intent) Thought Content (Other): none reported Thought Content (Aggressive): none reported Perception (Hallucinations): auditory (Hears whispers but no conversation and no command) Perception (Other): none reported Cognition (Impairment of): none reported Cognition(Intelligence Est.): average Oriented: Awake, Alert, Oriented times three Insight: fair Judgment: Fair Psychosis: Denies Diagnoses Major depression recurrent A-FIB/CHADSVASC A-FIB History Current/History of A-Fib/PAF?: No Current PO Anticoag Therapy: No Age/Risk Factor Scoring CHADSVASC: CHADSVASC Response (Comments) Value Age Risk Factor Age < 65 years old 0 Gender Risk Factor Female 1 Hx of CHF No 0 Hx of HTN No 0 Hx of Stroke/TIA/or VTE No 0 Hx of Diabetes No 0 Hx of Vascular Disease No 0 Total 1 Treatment Treatment ordered: NONE Assessment Markedly depressed with a significant psychomotor retardation and poor response to current antidepressant treatment. 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 Needs stabilization with the medication changes and supportive therapy Initial Treatment Plan 1. Patient was admitted on a [9.39] status. 2. Complete history was obtained. 3. With patients permission, family will be contacted and database will be expanded. 4. Patients medication regimen will be reviewed and changed accordingly. 5. Patient will be provided with protected environment. 6. Patient will be treated with individual, group, and milieu therapies. 7. Patient will receive supportive psych-education. 8. Discharge planning will commence immediately. 9. Outpatient follow-up treatment will be strongly recommended. 10. The initial treatment plan will focus initially on: * Depression. * Risk for suicide. ESTIMATED LENGTH OF STAY: [5]- DAYS. TIME SPENT COUNSELING AND COORDINATING INITIAL CARE: [40] minutes. Complete/Results docum. Vital Signs Vital Signs Date Time Temp Pulse Resp B/P (MAP) Pulse Ox O2 Delivery O2 Flow Rate FiO2 03/23/21 21:52 98.0 107 20 111/72 (85) 96 Room Air Laboratory Data 24H Labs Laboratory Tests 2 03/23/21 14:51: Nucleated Red Blood Cells % (auto) 0.0, Anion Gap 5L, Glomerular Filtration Rate > 60.0, Calcium Level 8.9, Total Bilirubin 0.2, Direct Bilirubin < 0.1, Aspartate Amino Transf (AST/SGOT) 11, Alanine Aminotransferase (ALT/SGPT) 27, Alkaline Phosphatase 81, Total Protein 7.3, Albumin 3.9, Albumin/Globulin Ratio 1.1L, Thyroid Stimulating Hormone (TSH) 1.240, Human Chorionic Gonadotropin, Qual NEGATIVE, Salicylates Level < 1.7L, Urine Opiates Screen NEGATIVE, Urine Methadone Screen NEGATIVE, Acetaminophen Level < 2.0L, Urine Barbiturates Screen NEGATIVE, Urine Phencyclidine Screen NEGATIVE, Urine Amphetamines Screen POSITIVEH, Urine Benzodiazepines Screen NEGATIVE, Urine Cocaine Metabolite Screen NEGATIVE, Urine Cannabinoids Screen NEGATIVE, Ethyl Alcohol Level < 0.003 03/23/21 16:33: Coronavirus (COVID-19)(PCR) NEGATIVE, Influenza Type A (RT-PCR) NEGATIVE, Influenza Type B (RT-PCR) NEGATIVE, Respiratory Syncytial Virus (PCR) NEGATIVE CBC/BMP Laboratory Tests 03/23/21 14:51 Medications Scheduled Bupropion HCl (Wellbutrin Sr) 150 Mg Tab.sr.12h, 300 MG PO DAILY, (Reported) Cholecalciferol (Vitamin D3) (Vitamin D3) 125 Mcg Capsule, 125 MCG PO QHS, (Reported) Dextroamphetamine/Amphetamine (Dextroamp-Amphet ER 20 mg Cap) 20 Mg Cap.er.24h, 20 MG PO BID, (Reported) 2ND DOSE AFTER LUNCH Quetiapine Fumarate (Quetiapine Fumarate) 200 Mg Tablet, 200 MG PO QHS, (Reported) Topiramate (Topiramate) 50 Mg Tablet, 50 MG PO QHS, (Reported) Venlafaxine HCl (Venlafaxine HCl ER) 75 Mg Tab.er.24, 225 MG PO DAILY, (Repo rted) Scheduled PRN Hydroxyzine HCl (Hydroxyzine HCl) 50 Mg Tablet, 50 MG PO BID PRN for ANXIETY, (Reported) Allergies Coded Allergies: latex (Verified Allergy, Intermediate, BLISTER, 04/15/20) aripiprazole (Verified Allergy, Unknown, ANXIETY & RESTLESSNESS, 06/24/20) escitalopram (Verified Adverse Reaction, Severe, SIs, 05/30/20) EMELY SINGH M.D. Mar 24, 2021 10:13
[2021-03-24 18:05] VITALS: BP 122/72
--- NOTE | 2021-03-24 19:42 | HPEPDOC ---
General Date of Admission Mar 23, 2021 at 17:46 Date of Service: Mar 24, 2021 Attending Physician: Bartolo Hopkins MD Chief Complaint The patient is a 20-year-old female admitted with a reason for visit of Unspecified Depressive Disorder. Home Medications Scheduled Bupropion HCl (Wellbutrin Sr) 150 Mg Tab.sr.12h, 300 MG PO DAILY, (Reported) Cholecalciferol (Vitamin D3) (Vitamin D3) 125 Mcg Capsule, 125 MCG PO QHS, (Reported) Dextroamphetamine/Amphetamine (Dextroamp-Amphet ER 20 mg Cap) 20 Mg Cap.er.24h, 20 MG PO BID, (Reported) 2ND DOSE AFTER LUNCH Quetiapine Fumarate (Quetiapine Fumarate) 200 Mg Tablet, 200 MG PO QHS, (Reported) Topiramate (Topiramate) 50 Mg Tablet, 50 MG PO QHS, (Reported) Venlafaxine HCl (Venlafaxine HCl ER) 75 Mg Tab.er.24, 225 MG PO DAILY, (Reported) Scheduled PRN Hydroxyzine HCl (Hydroxyzine HCl) 50 Mg Tablet, 50 MG PO BID PRN for ANXIETY, (Reported) Allergies Coded Allergies: latex (Verified Allergy, Intermediate, BLISTER, 04/15/20) aripiprazole (Verified Allergy, Unknown, ANXIETY & RESTLESSNESS, 06/24/20) escitalopram (Verified Adverse Reaction, Severe, SIs, 05/30/20) A-FIB/CHADSVASC Age/Risk Factor Scoring CHADSVASC: CHADSVASC Response (Comments) Value Age Risk Factor Age < 65 years old 0 Gender Risk Factor Female 1 Hx of CHF No 0 Hx of HTN No 0 Hx of Stroke/TIA/or VTE No 0 Hx of Diabetes No 0 Hx of Vascular Disease No 0 Total Vital Signs Vital Signs Date Time Temp Pulse Resp B/P (MAP) Pulse Ox O2 Delivery O2 Flow Rate FiO2 03/24/21 18:05 97.3 85 18 122/72 (89) 03/24/21 10:18 Room Air 03/23/21 21:52 96 Bartolo Hopkins MD Mar 24, 2021 19:42
[2021-03-24] MEDS: MIRTAZAPINE 15 MG TAB PO SCH (20:29)
[2021-03-24] MEDS: **NOTE PATIENT COMMENT** MISC XX SCH (20:30)
[2021-03-25 07:09] VITALS: BP 124/77
[2021-03-25] MEDS: QUEtiapine FUMARATE 50MG TAB PO SCH (08:33)
[2021-03-25] MEDS: buPROPion **SR TABLET** (ZYBAN) 150MG PO SCH (08:33)
[2021-03-25] MEDS: NICOTINE 21MG/24HR 1 EA TRANSDERMAL TD SCH (08:33)
[2021-03-25] MEDS: IBUPROFEN 600MG TAB PO PRN ×2 (08:34→21:02)
--- NOTE | 2021-03-25 10:23 | MHIPNPDOC ---
[facility] Progress Note Progress Note DATE OF SERVICE: 03/25/21 The patient appears more anxious and pressured and somewhat tearful. She stated that without the Seroquel she could not really fall asleep and the new medicat ion of the Remeron did not help much with her sleep or anxiety yet. She also stated that she used to hear more voices and seeing shadows sometimes and Seroquel did help to raise that problem. She appears in moderate distress but denies any active suicidal plan or intent but wants to have her Seroquel restarted. She is denying any command hallucination and denies any active suici shaneka plan or intent but feels extremely anxious and depressed. HISTORY:. VITAL SIGNS: See below. NEW TEST RESULTS:. CURRENT MEDICATIONS: See below. MENTAL STATUS EXAMINATION: Patient is a 20-year old female, who is anxious tearful. Speech: Is rational but not productive. Language skills are fair. Thought processes including: Relevant but not productive. Thought content: Reports anxiety and fear. Abstract reasoning, and computation: Poor. Description of associations: Relevant. Description of abnormal or psychotic thoughts: Report occasional hallucination of hearing whispers and seeing shadows. Judgment: Poor. Insight: poor]. Orientation: Oriented. Recent and remote memory: No impairment. Attention span and concentration:. Language:. Fund of knowledge:. Mood: Markedly anxious and depressed and tearful. Affect: Appropriate but markedly depressed. DIAGNOSES: 1.. Major depression recurrent 2.. 3.. ASSESSMENT: Reports no significant relief MANAGEMENT PLAN: Restart Seroquel 200 mg at bedtime and 50 mg in the morning continue with supportive therapy. TIME SPENT: 20 minutes. Vital Signs Vital Signs Date Time Temp Pulse Resp B/P (MAP) Pulse Ox O2 Delivery O2 Flow Rate FiO2 03/25/21 09:18 Room Air 03/25/21 07:09 97.9 83 20 124/77 (93) 100 Current Medications Current Medications Medications (Trade) Dose Ordered Sig/Brandon Route PRN Reason Start Time Stop Time Status Last Admin Dose Admin Acetaminophen (Tylenol Tab) 650 mg Q6HP PRN PO HEADACHE or MILD DISCOMFORT 03/23/21 17:50 Al Hydrox/Mg Hydrox/Simethicone (Mylanta) 30 ml Q4HP PRN PO HEARTBURN/INDIGESTION 03/23/21 17:50 Bupropion HCl (Zyban, Wellbutrin Sr) 300 mg DAILY PO 03/24/21 09:00 03/25/21 08:33 Home Med (Med Rec Complete!) ASDIRECTED XX 03/23/21 18:50 03/23/21 18:57 DC Hydroxyzine HCl (Atarax) 50 mg DAILYPRN PRN PO ANXIETY 03/23/21 18:05 03/23/21 22:08 Ibuprofen (Advil) 600 mg Q6HP PRN PO MODERATE PAIN (PS 5-7) 03/25/21 08:30 03/25/21 08:34 Magnesium Hydroxide (Milk Of Magnesia) 30 ml DAILYPRN PRN PO CONSTIPATION 03/23/21 17:50 Mirtazapine (Remeron) 15 mg QHS PO 03/24/21 21:00 03/24/21 20:29 Miscellaneous (Unresolved Clarification Entry) SEE LABEL COMMENTS DAILY XX 03/23/21 09:00 03/24/21 08:20 DC Nicotine (Nicoderm Cq 21mg) 1 patch DAILY TD 03/23/21 09:00 03/25/21 08:33 Non-Formulary Medication ( See Comment Field Below ) REMOVE LIDODERM PATCH DAILY@21 XX 03/24/21 21:00 Quetiapine Fumarate (SEROquel) 50 mg DAILY PO 03/25/21 09:00 03/25/21 08:33 Quetiapine Fumarate (SEROquel) 200 mg QHS PO 03/23/21 21:00 03/24/21 09:23 DC 03/23/21 22:08 Quetiapine Fumarate (SEROquel) 200 mg QHS PO 03/25/21 21:00 Trazodone HCl (Desyrel) 50 mg QHSP PRN PO INSOMNIA 03/23/21 17:50 03/24/21 09:23 DC 03/23/21 22:08 Allergies Coded Allergies: latex (Verified Allergy, Intermediate, BLISTER, 04/15/20) aripiprazole (Verified Allergy, Unknown, ANXIETY & RESTLESSNESS, 06/24/20) escitalopram (Verified Adverse Reaction, Severe, SIs, 05/30/20) EMELY SINGH M.D. Mar 25, 2021 10:23
[2021-03-25] MEDS: **NOTE PATIENT COMMENT** MISC XX SCH (21:00)
[2021-03-25] MEDS: QUEtiapine FUMARATE 200 MG TAB PO SCH (21:01)
[2021-03-25] MEDS: MIRTAZAPINE 15 MG TAB PO SCH (21:01)
[2021-03-26 06:22] VITALS: BP 111/68
[2021-03-26] MEDS: NICOTINE 21MG/24HR 1 EA TRANSDERMAL TD SCH (08:30)
[2021-03-26] MEDS: buPROPion **SR TABLET** (ZYBAN) 150MG PO SCH (08:30)
[2021-03-26] MEDS: QUEtiapine FUMARATE 50MG TAB PO SCH (08:30)
--- NOTE | 2021-03-26 10:25 | MHIPNPDOC ---
[facility] Progress Note Progress Note DATE OF SERVICE: 03/26/21 The patient reports that she is feeling much less anxious and not getting as much panic symptoms with the medication change. She slept good and is feeling better this morning and denies having any suicidal thoughts. She was cautioned that it is too early to determine the effectiveness of the medications but the patient reports that she is not getting any side effect and she is feeling better and is very anxious to go home because she misses her 2 children. She appears much less anxious and is not tearful anymore and slightly more animated. HISTORY:. VITAL SIGNS: See below. NEW TEST RESULTS:. CURRENT MEDICATIONS: See below. MENTAL STATUS EXAMINATION: Patient is a 20-year old female, who is in no acute distress. Speech: Is more productive. Language skills are fair. Thought processes including: Relevant and coherent. Thought content: Denies any suicidal thoughts. Abstract reasoning, and computation: Fair. Description of associations: Fair organized. Description of abnormal or psychotic thoughts: Denies any psychotic symptoms. Judgment: Billy\. Insight: Fair. Orientation: Oriented unimpaired. Recent and remote memory:. Attention span and concentration:. Language:. Fund of knowledge:. Mood: Reports feeling better and not as anxious. Affect: More animated than appropriate. DIAGNOSES: 1.. Major depression recurrent 2.. 3.. ASSESSMENT: Showing some improvement MANAGEMENT PLAN: Continue with the current medicine and supportive therapy. TIME SPENT: 20 minutes. Vital Signs Vital Signs Date Time Temp Pulse Resp B/P (MAP) Pulse Ox O2 Delivery O2 Flow Rate FiO2 03/26/21 06:22 97.2 99 118 111/68 (82) 96 Room Air Current Medications Current Medications Medications (Trade) Dose Ordered Sig/Brandon Route PRN Reason Start Time Stop Time Status Last Admin Dose Admin Acetaminophen (Tylenol Tab) 650 mg Q6HP PRN PO HEADACHE or MILD DISCOMFORT 03/23/21 17:50 Al Hydrox/Mg Hydrox/Simethicone (Mylanta) 30 ml Q4HP PRN PO HEARTBURN/INDIGESTION 03/23/21 17:50 Bupropion HCl (Zyban, Wellbutrin Sr) 300 mg DAILY PO 03/24/21 09:00 03/26/21 08:30 Home Med (Med Rec Complete!) ASDIRECTED XX 03/23/21 18:50 03/23/21 18:57 DC Hydroxyzine HCl (Atarax) 50 mg DAILYPRN PRN PO ANXIETY 03/23/21 18:05 03/23/21 22:08 Ibuprofen (Advil) 600 mg Q6HP PRN PO MODERATE PAIN (PS 5-7) 03/25/21 08:30 03/25/21 21:02 Magnesium Hydroxide (Milk Of Magnesia) 30 ml DAILYPRN PRN PO CONSTIPATION 03/23/21 17:50 Mirtazapine (Remeron) 15 mg QHS PO 03/24/21 21:00 03/25/21 21:01 Miscellaneous (Unresolved Clarification Entry) SEE LABEL COMMENTS DAILY XX 03/23/21 09:00 03/24/21 08:20 DC Nicotine (Nicoderm Cq 21mg) 1 patch DAILY TD 03/23/21 09:00 03/25/21 08:33 Non-Formulary Medication ( See Comment Field Below ) REMOVE LIDODERM PATCH DAILY@ XX 03/24/21 21:00 Quetiapine Fumarate (SEROquel) 50 mg DAILY PO 03/25/21 09:00 03/26/21 08:30 Quetiapine Fumarate (SEROquel) 200 mg QHS PO 03/23/21 21:00 03/24/21 09:23 DC 03/23/21 22:08 Quetiapine Fumarate (SEROquel) 200 mg QHS PO 03/25/21 21:00 03/25/21 21:01 Trazodone HCl (Desyrel) 50 mg QHSP PRN PO INSOMNIA 03/23/21 17:50 03/24/21 09:23 DC 03/23/21 22:08 Allergies Coded Allergies: latex (Verified Allergy, Intermediate, BLISTER, 04/15/20) aripiprazole (Verified Allergy, Unknown, ANXIETY & RESTLESSNESS, 06/24/20) escitalopram (Verified Adverse Reaction, Severe, SIs, 05/30/20) EMELY SINGH M.D. Mar 26, 2021 10:25
[2021-03-26 18:01] VITALS: BP 140/82
[2021-03-26] MEDS: **NOTE PATIENT COMMENT** MISC XX SCH (20:06)
[2021-03-26] MEDS: QUEtiapine FUMARATE 200 MG TAB PO SCH (21:40)
[2021-03-26] MEDS: MIRTAZAPINE 15 MG TAB PO SCH (21:40)
[2021-03-26] MEDS: IBUPROFEN 600MG TAB PO PRN (21:41)
[2021-03-27 06:07] VITALS: BP 107/77
[2021-03-27] MEDS: NICOTINE 21MG/24HR 1 EA TRANSDERMAL TD SCH (08:21)
[2021-03-27] MEDS: QUEtiapine FUMARATE 50MG TAB PO SCH (08:21)
[2021-03-27] MEDS: buPROPion **SR TABLET** (ZYBAN) 150MG PO SCH (08:22)
[2021-03-27] MEDS ORDERED: QUET50TA3 PO (08:37)
[2021-03-27] MEDS ORDERED: MIRT-62 PO (08:37)
--- NOTE | 2021-03-27 11:16 | MHDSPDOC ---
[facility] Discharge Summary Discharge Summary DATE OF ADMISSION: Mar 23, 2021 at 17:46 DATE OF DISCHARGE: Mar 27, 2021 at 10:18 DISCHARGE DIAGNOSES: 1.. Major depression recurrent 2.. REASON FOR ADMISSION: 20-year-old female with a history of depression with the 2 previous admissions. She was admitted due to complaint of increasing depression and suicidal thoughts. Patient reports poor response to the current medication and is feeling anxious restless depressed with vague suicidal thoughts. CONSULTANTS INVOLVED: TREATMENT AND PROGRESS ON THE UNIT : Patient was seen for supportive therapy con tinued on her Seroquel 200 mg at bedtime and has 50 mg in the morning to control her anxiety and was also given Remeron 15 mg at bedtime.. HOSPITAL COURSE: Patient is fully cooperated and tolerated medications without any complaint of side effect. She is much less anxious or tearful and is sleeping better and denies any suicidal thoughts and is feeling stable and safe. She is requesting discharge so she can be home to care for her 2 children. She has outpatient treatment source and feeling safe and stable DISCHARGE ASSESSMENT: Much improved stable and not suicidal MENTAL STATUS EXAMINATION ON DISCHARGE: Patient is a 20-year old female, who is in no acute distress. Speech is rational and coherent. Language skills are good. Thought processes including: Organized. Thought content: Denies any suicidal thoughts. Abstract reasoning, and computation: Fair. Description of associations: Organized. Description of abnormal or psychotic thoughts: None. Judgment: Fair. Insight: Fair. Orientation to oriented. Recent and remote memory: No impairment. Attention span and concentration: Fair. Language:. Fund of knowledge:. Mood: Not as anxious or depressed. Affect: Appropriate. MEDICATIONS ON DISCHARGE: -For. Seroquel 50 mg in the morning for 7 days with 3 refills -For. Remeron 15 mg at bedtime 7 days with 3 refills -For. PLAN/FOLLOWUP ARRANGEMENTS: Arranged by menu planner. The amount of time spent in the coordination of care for this patient was approximately 35 minutes. ETOH/Disorder Med Rx ETOH/DRUG DISORDER RX: N/A Vital Signs/I&Os Vital Signs Date Time Temp Pulse Resp B/P (MAP) Pulse Ox O2 Delivery O2 Flow Rate FiO2 03/27/21 06:07 98.4 92 16 107/77 (87) 97 Room Air Medications Scheduled Bupropion HCl (Wellbutrin Sr) 150 Mg Tab.sr.12h, 300 MG PO DAILY, (Reported) Cholecalciferol (Vitamin D3) (Vitamin D3) 125 Mcg Capsule, 125 MCG PO QHS, (Reported) Dextroamphetamine/Amphetamine (Dextroamp-Amphet ER 20 mg Cap) 20 Mg Cap.er.24h, 20 MG PO BID, (Reported) 2ND DOSE AFTER LUNCH Mirtazapine (Remeron) 15 Mg Tablet, 15 MG PO QHS for depression for 7 Days, #7 Quetiapine Fumarate (Quetiapine Fumarate) 200 Mg Tablet, 200 MG PO QHS, (Reported) Quetiapine Fumarate (Quetiapine Fumarate) 50 Mg Tablet, 50 MG PO DAILY for mood for 7 Days, #7 Topiramate (Topiramate) 50 Mg Tablet, 50 MG PO QHS, (Reported) Venlafaxine HCl (Venlafaxine HCl ER) 75 Mg Tab.er.24, 225 MG PO DAILY, (Reported) Scheduled PRN Hydroxyzine HCl (Hydroxyzine HCl) 50 Mg Tablet, 50 MG PO BID PRN for ANXIETY, (Reported) Allergies Coded Allergies: latex (Verified Allergy, Intermediate, BLISTER, 04/15/20) aripiprazole (Verified Allergy, Unknown, ANXIETY & RESTLESSNESS, 06/24/20) escitalopram (Verified Adverse Reaction, Severe, SIs, 05/30/20) EMELY SINGH M.D. Mar 27, 2021 11:16
== END 2021-03-27 10:18 | disposition home or self-care (01) | DRG 751 ==
LOC: M ED 13:46 → M ED INP 17:46 → M PSY 21:01
PROVIDERS: ADMIT Psychiatry & Neurology Psychiatry; ATTEND Psychiatry & Neurology Psychiatry
DX: F33.0 Major depressive disorder, recurrent, mild (principal); F41.9 Anxiety disorder, unspecified; Z20.822 Contact with and (suspected) exposure to COVID-19; Z79.899 Other long term (current) drug therapy; Z88.8 Allergy status to other drugs, medicaments and biological substances; Z91.040 Latex allergy status